=== PATIENT | female | born 1960 | race Caucasian/White ===

== ENCOUNTER 2019-10-29 15:45 | Outpatient (CLI) | payer OTHER, SELFPAY ==
--- NOTE | ~2019-10-29 | XR_ITS ---
EXAMINATION:XR cervical spine 4-5V DATE: 10/29/2019 16:37 INDICATION: Left arm numbness TECHNIQUE: AP, lateral, lateral swimmers and odontoid views of the cervical spine are provided. COMPARISON: None FINDINGS: There is 1 mm of anterolisthesis of C2 on C3and 1 mm anterolisthesis of C3 on C4.There is s traightening of the cervical spine. The odontoid is intact. No fracture is identified. The vertebral body heights are normal. There is mild loss of intervertebral disc space height at C5-6. There is mod erate bilateral uncovertebral joint osteoarthritis at C5-6. Prevertebral soft tissues are normal. IMPRESSION: 1. Mild cervical spondylosis without acute findings. Reviewed, dictated and finalized at location A. IT PRODUCT ANALYST
--- NOTE | ~2019-10-29 | XR_ITS ---
EXAMINATION: XR ribs RT 2V DATE: 10/29/2019 16:37 INDICATION: Right rib pain. Pleurodynia. TECHNIQUE: 3 views of the right ribs were obtained. COMPARISON: Chest 2 views 04/07/2018 FINDINGS: The lungs are hyperexpanded with lucencies, consistent with emphysema. There is mild scarri ng at the lung apices. No pleural effusion or pneumothorax. The heart size is normal. There are multi ple old healed right rib fractures. IMPRESSION: 1. No acute rib fracture. 2. Emphysema. Reviewed, dictated and finalized at location A. ENTARY READING TUTOR
== END 2019-10-29 15:46 | disposition home or self-care (01) ==
PROVIDERS: PCP Family Medicine; Visit Provider Family Medicine
DX: R07.81 Pleurodynia (principal); J43.9 Emphysema, unspecified; M47.892 Other spondylosis, cervical region
CPT/HCPCS: 71100; 72050

== ENCOUNTER 2021-07-13 08:09 | Outpatient (CLI) | payer OTHER, SELFPAY ==
[2021-07-13 09:08] LABS: Cholesterol 207 mg/dL (0-200); HDL Direct 52 mg/dL; Triglycerides 168 mg/dL (<150)
[2021-07-13 09:19] LABS: LDL Cholesterol Direct 115 mg/dL
== END 2021-07-13 08:10 | disposition home or self-care (01) ==
LOC: ANHLAB 08:12
PROVIDERS: PCP Family Medicine; Visit Provider Family Medicine
DX: E78.5 Hyperlipidemia, unspecified (principal)
CPT/HCPCS: 80061

== ENCOUNTER 2022-11-17 08:20 | Outpatient (CLI) | payer OTHER, SELFPAY ==
--- NOTE | ~2022-11-17 | XR_ITS ---
Right Shoulder Technique: AP and scapular Y views were obtained. Clinical History: Degenerative joint disease Findings: No fracture or dislocation is seen. Osseous alignment is anatomic. The glenohumeral and acr omioclavicular joint spaces are preserved. Soft tissues are unremarkable. Impression: Unremarkable right shoulder radiographs. Reviewed, dictated and finalized at location . Impression: Unremarkable right shoulder radiographs.
--- NOTE | ~2022-11-17 | XR_ITS ---
Left Hand Technique: PA, oblique, and lateral views were obtained. Clinical History: General joint disease Findings: No acute fracture or dislocation is seen. Osseous alignment is anatomic. Joint spaces are p reserved. Soft tissues are unremarkable. Impression: Unremarkable left hand. Reviewed, dictated and finalized at location . Impression: Unremarkable left hand.
--- NOTE | ~2022-11-17 | XR_ITS ---
Right Hand Technique: PA, oblique, and lateral views were obtained. Clinical History: Degenerative joint disease Findings: No acute fracture or dislocation is seen. Osseous alignment is anatomic. Joint spaces are p reserved. Soft tissues are unremarkable. Impression: Unremarkable right hand. Reviewed, dictated and finalized at location . Impression: Unremarkable right hand.
== END 2022-11-17 08:21 | disposition home or self-care (01) ==
LOC: ANHIMG 08:23
PROVIDERS: PCP Family Medicine; Visit Provider Family Medicine
DX: M15.9 Polyosteoarthritis, unspecified (principal)
CPT/HCPCS: 73030; 73130

== ENCOUNTER 2022-12-30 14:27 | Outpatient (CLI) | payer OTHER, SELFPAY ==
--- NOTE | ~2022-12-30 | DEXA_ITS ---
Bone Density Report Name: YOLI ZHAO Age: 62 Sex: Female Ethnicity: White Date of : 1960 Indication: postmenopausal; screening for osteoporosis; prior fracture; Referring Provider: NAEL, BRITNI Moise Study: Bone densitometry was performed. Exam Date: December 30, 2022 Accession number: [id number] Bone Density: Region BMD T-score Z-score Classification AP Spine(L1-L4) 0.523 -4.8 -3.2 Osteoporosis Femoral Neck (Left) 0.406 -4.0 -2.6 Osteoporosis Total Hip (Left) 0.524 -3.4 -2.3 Osteoporosis Femoral Neck (Right) 0.436 -3.7 -2.3 Osteoporosis Total Hip (Right) 0.510 -3.5 -2.4 Osteoporosis Total Hip Mean 0.517 -3.5 -2.4 Osteoporosis World Health Organization criteria for BMD impression classify patients as: Normal (T-score at or above -1.0), Osteopenia (T-score between -1.0 and -2.5), or Osteoporosis (T-score at or below -2.5). Clinical Information Provided by Patient: Has had a low trauma fracture Has used the following medications: Vitamin D Patient maximum height was 67 Menopause Age: 52 Does not regularly consume dairy products Onset of menses at age 16 Number of children 3 Impression: The patient has established osteoporosis, based on the Total Spine T-score and the existence of a prior fracture. The patient has risk factors, including: previous fracture. Discussion: HIGH RISK OF FRACTURE. BONE DENSITY IS UNDESIRABLY LOW AT ONE OR MORE SKELETAL SITES, CONSISTENT WITH POSTMENOPAUSAL OSTEOPOROSIS. This patient's lowest T-score, in a patient who has previously fractured, meets the World Health Organization's (WHO) criteria for severe osteoporosis. In untreated patients, the risk of osteoporotic fracture increases approximately two-fold for each 1.0 SD decrease in T-score. Low bone density is not the only risk factor for fracture; also consider factors such as patient's age, frailty or poor health, risk of falling, risk of injury, previous osteoporotic fracture, family history of osteoporosis, cigarette smoking, low body weight, etc. Not everyone with low bone mineral density has osteoporosis; osteomalacia and other metabolic bone disorders should also be considered. Patients who have osteoporosis should be evaluated for specific diseases and conditions (secondary causes) that may cause or contribute to bone loss. The [place] Association of Clinical Endocrinologists (AACE) and National Osteoporosis Foundation (NOF) recommend pharmacologic intervention for all postmenopausal women whose T-score is in this range. The patient should follow a healthful lifestyle (good nutrition with adequate calcium and vitamin D, and appropriate weight-bearing exercise). Follow-Up: Consider a repeat BMD and Vertebral Fracture Assessment (VFA) exam in 2 years or sooner if medically necessary, to reassess this patient's status. Reported by: SANDRA on 12/30/2022 2:49:00 PM. Reviewed, dictated and finaliz
== END 2022-12-30 14:28 | disposition home or self-care (01) ==
PROVIDERS: PCP Family Medicine; Visit Provider Family Medicine
DX: M81.0 Age-related osteoporosis without current pathological fracture (principal)
CPT/HCPCS: 77080

== ENCOUNTER 2023-11-16 07:45 | Outpatient (CLI) | payer OTHER, SELFPAY ==
[2023-11-16 08:29] LABS: Cholesterol 210 mg/dL (0-200); HDL Direct 63 mg/dL; Triglycerides 133 mg/dL (<150)
[2023-11-16 08:33] LABS: Appearance Urine Clear (Clear); Bacteria Urine None Seen /hpf; Bilirubin Urine Negative (Negative); Blood Urine Negative (Negative); Color Urine Yellow (Yellow); Glucose Urine UA Negative (Negative); Ketones Urine Negative (Negative); Leukocyte Esterase Ur Trace LEU/UL (Negative); Nitrate Urine Negative (Negative); Non Pathogenic Casts 0-2; Protein Urine Negative (Negative); RBC Urine 0-2 /hpf (0-2); Specific Grav Ur 1.005 (1.001-1.035); Squamous Epithelial Cell Urine None Seen /hpf (Few); Urobilinogen Urine 0.2 mg/dL (<2.0); WBC Urine 0-5 /hpf (0-3); pH Urine 7.5 (5.0-9.0)
[2023-11-16 08:35] LABS: Add Urine Microscopic? YES
[2023-11-16 08:40] LABS: LDL Cholesterol Direct 124 mg/dL
== END 2023-11-16 07:46 | disposition home or self-care (01) ==
PROVIDERS: PCP Family Medicine; Visit Provider Family Medicine
DX: R82.90 Unspecified abnormal findings in urine (principal); E78.5 Hyperlipidemia, unspecified
CPT/HCPCS: 36415; 80061

== ENCOUNTER 2024-11-15 08:01 | Outpatient (CLI) | payer OTHER, SELFPAY ==
--- OUTSIDE RECORDS SUMMARY | 2024-11-15 08:13 | XMS_ITS | Patient Health Summary ---
Author Organization [facility] Address [address] [place] [address] Care Team Providers Care Engine Head Repairer Name Role Phone FernieMartín Primary Care Provider Tori Valencia MD Unavailable Glenda Benjamin MD Unavailable [phone] Note from [facility],non-owned Affiliates and Associated Physician Practices is amultiple site organization consisting of ambulatory clinics and hospital sitesin [place], [place], [place] and [place]. This disclosure is being madepursuant to the Care Everywhere program and may not contain all information available regarding this patient. Last updated 18.[facility] Allergies * Sulfamethoxazole W-Trimethoprim(Nausea and/or Vomiting) * Ciprofloxacin(Shortness of Breath,Nausea and/or Vomiting) -High Criticality * Codeine(Nausea and/or Vomiting) * Nitrofurantoin(Diarrhea) Medications * Be aware that medications may not be up to date on this document. Alwaysverify current medications with the patient. * estradiol (VAGIFEM) 10 MCG vaginal tablet(Started 11/02/2018) Insert 1 tablet into the vagina every Tuesday & 3 refills remaining * ubrogepant (Ubrelvy) 50 MG tablet(Started 03/04/2023) Take 1 (one) tablet by mouth * Multiple Vitamins-Minerals (Centrum MultiGummies) CHEW qd * Calcium Carb-Cholecalciferol 500-10 MG-MCG TABS * Cholecalciferol 50 MCG (1999 UT) qd * clobetasol (Temovate) 0.05 % ointment(Started 11/29/2023) Apply to affected area 2 times daily 4 refills by 11/28/2024 * estradiol (ESTRACE VAGINAL) 0.1 MG/GM vaginal cream(Started 11/29/2023) Insert 1 g into the vagina at bedtime X 2 week the 2 times weekly 3 refills by 11/28/2024 Social History Tobacco Use Types Packs/Day Years Used Date Smoking Tobacco: Never Smokeless Tobacco: Never Tobacco Cessation:Counseling Given: Not Answered Alcohol Use Standard Drinks/Week Comments No 0 (1 standard drink = 0.6 oz pur e alcohol) PHQ-2 Answer Date Recorded Patient Health Questionnaire-2 Score 0 11/29/2023 Sex and Gender Information Value Date Recorded Sex Assigned at Not on file Gender Identity Not on file Sexual Orientation Not on file Last Filed Vital Signs Vital Sign Reading Time Taken Comments Blood Pressure 110/72 11/29/2023 9:43 AM CDT Pulse - - Temperature - - Respiratory Rate - - Oxygen Saturation - - Inhaled Oxygen Concentration - - Weight 54.4 kg (120 lb) 11/29/2023 9:43 AM CDT Height 170.2 cm (5' 7 ) 11/29/2023 9:43 AM CDT Body Mass Index 18.79 11/29/2023 9:43 AM CDT Procedures * DEXA BONE DENSITY AXIAL SKELETON(Performed 11/10/2018) Performed for Menopausal state * URINALYSIS MICROSCOPIC ONLY REFLEXED(Performed 10/31/2018) Performed for Dysuria * URINALYSIS REFLEX MICROSCOPIC REFLEX CULTURE(Performed 10/31/2018) Performed for Dysuria * CULTURE URINE(Performed 10/31/2018) Performed for Dysuria * US PELVIS W TRANSVAG W DOP NON OB(Performed 10/31/2018) Performed for Pelvic pain in female * PAP IG LB + HPV HR(Performed 10/31/2018) Performed for Well woman exam with routine gynecological exam * PAP IG LB+HPV HR RFLX 16,18(Performed 08/05/2017) Performed for Well woman exam with routine gynecological exam * PAP IGP CERVICAL CANCER AND CT/NG SCREENING(Performed 08/05/2017) Performed for Well woman exam with routine gynecological exam Results * DEXA BONE DENSITY AXIAL SKELETON (11/10/2018 12:15 PM PROJECT CONSTRUCTION ASSISTANT MANAGER) Anatomical Region Laterality Modality Mammography 11/10/2018 1:20 PM PROJECT CONSTRUCTION ASSISTANT MANAGER Narrative 11/10/2018 1:21 PM PROJECT CONSTRUCTION ASSISTANT MANAGER Bone density study (DEXA): History: Osteoporosis screening, calcium supplements, postmenopausal. Current study: 11/10/2018. Location: [facility]. LUMBAR SPINE (L1-L4): Bone mineral density (g/cm2): 0.601. Current T-score: -4.1. Current Z-score: -2.7. Findings: Osteoporosis. LEFT FEMORAL NECK: Bone mineral density (g/cm2): 0.426. Current T-score: -3.8. Current Z-score: -2.6. Findings: Osteoporosis. Please see the PACS images for additional details. World Health Organization definitions of standard deviations relative to the mean T-score: Normal bone density = -1.0 and above Mild osteopenia = -1.0 to -1.5 Moderate osteopenia = -1.5 to -2.0 Severe osteopenia = -2.0 to -2.5 Osteoporosis = -2.5 and below [facility]: [employer] [facility]: [employer] [facility]: [employer] [facility]: [employer] A Reading Radiologist: Karthik Yusuf MD on 11/10/2018 at 1:21 PM Procedure Note Karthik Yusuf MD - 11/10/2018 Bone density study (DEXA): History: Osteoporosis screening, calcium supplements, postmenopausal. Current study: 11/10/2018. Location: [facility]. LUMBAR SPINE (L1-L4): Bone mineral density (g/cm2): 0.601. Current T-score: -4.1. Current Z-score: -2.7. Findings: Osteoporosis. LEFT FEMORAL NECK: Bone mineral density (g/cm2): 0.426. Current T-score: -3.8. Current Z-score: -2.6. Findings: Osteoporosis. Please see the PACS images for additional details. World Health Organization definitions of standard deviations relative to the mean T-score: Normal bone density = -1.0 and above Mild osteopenia = -1.0 to -1.5 Moderate osteopenia = -1.5 to -2.0 Severe osteopenia = -2.0 to -2.5 Osteoporosis = -2.5 and below [facility]: [employer] [facility]: [employer] [facility]: [employer] [facility]: [employer] A Reading Radiologist: Karthik Yusuf MD on 11/10/2018 at 1:21 PM Glenda Benjamin MD DEXA ORDERABLES * URINALYSIS MICROSCOPIC ONLY REFLEXED (10/31/2018 2:43 PM PROJECT CONSTRUCTION ASSISTANT MANAGER) WBC UA 0-5 0 - 5 /hpf [facility] INSURANCE BILL RBC UA 0-2 0 - 2 /hpf [facility] INSURANCE BILL Epithelial Cells (non renal) None seen 0 - 10 /hpf [facility] INSURANCE BILL Epithelial Cells (renal) NOT NEEDED [facility] INSURANCE BILL Comment:Ancillary determined the test is not needed Casts ua NOT NEEDED [facility] INSURANCE BILL Comment:Ancillary determined the test is not needed Casts UA NOT NEEDED [facility] INSURANCE BILL Comment:Ancillary determined the test is not needed Crystals UA NOT NEEDED [facility] INSURANCE BILL Comment:Ancillary determined the test is not needed Crystals UA NOT NEEDED [facility] INSURANCE BILL Comment:Ancillary determined the test is not needed Mucus UA Present Not Estab. [facility] INSURANCE BILL Bacteria UA None seen None seen/Few [facility] INSURANCE BILL Yeast UA NOT NEEDED [facility] INSURANCE BILL Comment:Ancillary determined the test is not needed Trichomonas UA NOT NEEDED [facility] INSURANCE BILL Comment:Ancillary determined the test is not needed Comment Urine NOT NEEDED [facility] INSURANCE BILL Comment:Ancillary determined the test is not needed 10/31/2018 2:43 PM PROJECT CONSTRUCTION ASSISTANT MANAGER 11/01/2018 Narrative Resulting Agency Comment [facility] [address] [id number] Glenda Benjamin MD LAB - URINALYSIS ORD ERABLES Performing Organization Address City/[facility] Co de Phone Number [facility] INSURANCE BILL [address] [place] [address] * (ABNORMAL) URINALYSIS REFLEX MICROSCOPIC REFLEX CULTURE (10/31/2018 2:43 PM PROJECT CONSTRUCTION ASSISTANT MANAGER) Specific Noel UA 1.008 1.005 - 1.030 [facility] INSURANCE BILL pH UA 7.5 5.0 - 7.5 [facility] INSURANCE BILL Color UA Yellow Yellow [facility] INSURANCE BILL Appearance Clear Clear [facility] INSURANCE BILL Leukocyte UA Trace(A) Negative [facility] INSURANCE BILL Protein UA Negative Negative/Tra ce [facility] INSURANCE BILL Glucose UA Negative Negative [facility] INSURANCE BILL Ketone UA Negative Negative [facility] INSURANCE BILL Occult Blood Urine Negative Negative [facility] INSURANCE BILL Bilirubin UA Negative Negative [facility] INSURANCE BILL Urobilinogen 0.2 0.2 - 1.0 mg/dL [facility] INSURANCE BILL Nitrite UA Negative Negative [facility] INSURANCE BILL Microscopic Examination Urine See below: [facility] INSURANCE BILL Comment:Microscopic was leona cated and was performed. Microscopic Examination Urine NOT NEEDED [facility] INSURANCE BILL Comment:Ancillary determined the test is not needed Urinalysis Reflex [facility] INSURANCE BILL Comment:This specimen has re flexed to a Urine Culture. Urine URINE SPECIMEN OBTAINED BY CLEAN CATCH PROCEDURE / Unknown 10/31/2018 2:43 PM PROJECT CONSTRUCTION ASSISTANT MANAGER 11/01/2018 Narrative Resulting Agency Comment [facility] [address] [id number] Glenda Benjamin MD LAB - URINALYSIS ORD ERABLES Performing Organization Address City/[facility]/ZIP Co de Phone Number [facility] INSURANCE BILL [address] [place] [address] * (ABNORMAL) CULTURE URINE (10/31/2018 2:43 PM PROJECT CONSTRUCTION ASSISTANT MANAGER) Urine Culture Routine Final report(A) [facility] INSURANCE BILL Result 1 Escherichia coli(A) [facility] INSURANCE BILL Comment: 25,000-50,000 colony forming units per mL Cefazolin <=4 ug/mL Cefazolin with an SANDRINE <=16 predicts susceptibility to the oral agents cefaclor, cefdinir, cefpodoxime, cefprozil, cefuroxime, cephalexin, and loracarbef when used for therapy of uncomplicated urinary tract infections due to E. coli, Klebsiella pneumoniae, and Proteus mirabilis. Antimicrobial Susceptibility [facility] INSURANCE BILL Comment: S = Susceptible; I = Intermediate; R = Resistant P = Positive; N = Negative MICS are expressed in micrograms per mL Antibiotic RSLT#1 RSLT#2 RSLT#3 RSLT#4 Amoxicillin/Clavulanic Acid S Ampicillin S Cefepime S Ceftriaxone S Cefuroxime S Ciprofloxacin R Ertapenem S Gentamicin S Imipenem S Levofloxacin R Meropenem S Nitrofurantoin S Piperacillin/Tazobactam S Tetracycline S Tobramycin S Trimethoprim/Sulfa S 10/31/2018 2:43 PM PROJECT CONSTRUCTION ASSISTANT MANAGER 11/01/2018 Narrative Resulting Agency Comment [facility] [address] [phone] Glenda Benjamin MD LAB - MICROBIOLOGY O RDERABLES Performing Organization Address City/State/[facility] Co de Phone Number [facility] INSURANCE BILL [address] [place] [address] * US PELVIS W TRANSVAG W DOP NON OB (10/31/2018 2:37 PM PROJECT CONSTRUCTION ASSISTANT MANAGER) Anatomical Region Laterality Modality Pelvis Ultrasound 10/31/2018 2:39 PM PROJECT CONSTRUCTION ASSISTANT MANAGER Impressions 10/31/2018 2:43 PM PROJECT CONSTRUCTION ASSISTANT MANAGER Essentially unremarkable pelvic sonography. Reading Radiologist: Israel Govea MD on 10/31/2018 at 2:43 PM Narrative 10/31/2018 2:43 PM PROJECT CONSTRUCTION ASSISTANT MANAGER EXAM: Pelvic ultrasound HISTORY: Recurrent urinary tract infections. Pain. COMPARISON: None FINDINGS: Transabdominal and endovaginal ultrasound pelvis was performed. Uterus is anteverted normal in size measuring 6.4 x 2.8 x 3.4 cm in size. Endometrial thickness measures 3.4 mm and is within normal limits. No uterine abnormality is seen. There are is a small nabothian cysts within the cervix. The right ovary measures 2.1 x 0.8 x 1.6 cm size. Left ovary measures 1.5 x 1.2 x 1.1 cm in size. No evidence of abnormal adnexal masses seen. Color and grayscale Doppler imaging to both ovaries are within normal limits. No free fluid is identified. Procedure Note Israel Govea MD - 10/31/2018 EXAM: Pelvic ultrasound HISTORY: Recurrent urinary tract infections. Pain. COMPARISON: None FINDINGS: Transabdominal and endovaginal ultrasound pelvis was performed. Uterus is anteverted normal in size measuring 6.4 x 2.8 x 3.4 cm in size. Endometrial thickness measures 3.4 mm and is within normal limits. No uterine abnormality is seen. There are is a small nabothian cysts within the cervix. The right ovary measures 2.1 x 0.8 x 1.6 cm size. Left ovary measures 1.5 x 1.2 x 1.1 cm in size. No evidence of abnormal adnexal masses seen. Color and grayscale Doppler imaging to both ovaries are within normal limits. No free fluid is identified. IMPRESSION Essentially unremarkable pelvic sonography. Reading Radiologist: Israel Govea MD on 10/31/2018 at 2:43 PM Glenda Benjamin MD US ORDERABLES * PAP IG LB + HPV HR (10/31/2018 12:17 PM PROJECT CONSTRUCTION ASSISTANT MANAGER) Diagnosis [facility] INSURANCE BILL Comment: NEGATIVE FOR INTRAEPITHELIAL LESION OR MALIGNANCY. CELLULAR CHANGES ASSOCIATED WITH ATROPHY ARE PRESENT. Specimen Adequacy [facility] INSURANCE BILL Comment: Satisfactory for evaluation. Endocervical and/or squamous metaplastic cells (endocervical component) are present. Clinician Provided ICD10 [facility] INSURANCE BILL Comment: Z01.419 Z12.31 R10.2 R30.0 Performed by [facility] INS[facility] BILL Comment:Sheila Mcdermott chnologist (ASCP) Comment . [facility] INSURANCE BILL Note [facility] INSURANCE BILL Comment: The Pap smear is a screening test designed to aid in the detection of premalignant and malignant conditions of the uterine cervix. It is not a diagnostic procedure and should not be used as the sole means of detecting cervical cancer. Both false-positive and false-negative reports do occur. . IGLBP CPT Code Automation [facility] INSURANCE BILL Comment: This liquid based ThinPrep(R) pap test was screened with the use of an image guided system. Human papillomavirus High Risk Negative Negative [facility] INSURANCE BILL Comment: This high-risk HPV test detects thirteen high-risk types (16/18/31/33/35/39/45/51/52/56/58/59/68) without differentiation. . Pathology/Cytolog y PART OF UTERINE CERVIX / Unknown 10/31/2018 12:17 PM PROJECT CONSTRUCTION ASSISTANT MANAGER 10/31/2018 Narrative [facility] INSURANCE BILL - 11/02/2018 10:15 AM PROJECT CONSTRUCTION ASSISTANT MANAGER Source.............Cervix No. of containers..01 ThinPrep Vial Resulting Agency Comment [facility] [phone] Glenda Benjamin MD LAB - PATHOLOGY/CYTO LOGY ORDERABLES Performing Organization Address City/[facility] Co de Phone Number [facility] INSURANCE BILL [address] [place] [address] * PAP IGP CERVICAL CANCER AND CT/NG SCREENING (08/05/2017 2:53 PM PROJECT CONSTRUCTION ASSISTANT MANAGER) Age Gdln ACOG Testing 30-65 [facility] INSURANCE BILL PART OF UTERINE CERVIX / Unknown 08/05/2017 2:53 PM PROJECT CONSTRUCTION ASSISTANT MANAGER 08/05/2017 Narrative [facility] INSURANCE BILL - 08/10/2017 6:13 AM PROJECT CONSTRUCTION ASSISTANT MANAGER Source.............Cervix No. of containers..01 ThinPrep Vial Resulting Agency Comment [facility] [employer] [id number] Glenda Benjamin MD LAB - PATHOLOGY/CYTO LOGY ORDERABLES Performing Organization Address City/[facility]/ZIP Co de Phone Number [facility] INSURANCE BILL [address] [place] [address] * PAP IG LB+HPV HR RFLX 16,18 (08/05/2017 2:53 PM PROJECT CONSTRUCTION ASSISTANT MANAGER) Diagnosis [facility] INSURANCE BILL Comment:UNSATISFACTORY FOR E VALUATION. Recommendation [facility] INSURANCE BILL Comment:Suggest follow up as clinically appropriate. Specimen Adequacy [facility] INSURANCE BILL Comment: Specimen processed and examined but unsatisfactory for evaluation of epithelial abnormality because of insufficient cellularity. Areas of partially obscuring inflammtory exudate are present. Clinician Provided ICD10 [facility] INSURANCE BILL Comment: Z01.419 Z12.31 N95.1 Performed by [facility] INSURANCE BILL Comment:Perri Baker, Cytot echnologist (ASCP) QC Reviewed by [facility] INSURANCE BILL Comment:Osvaldo Juarez Fabrication Department Supervisor (ASCP) Comment . [facility] INSURANCE BILL Note [facility] INSURANCE BILL Comment: The Pap smear is a screening test designed to aid in the detection of premalignant and malignant conditions of the uterine cervix. It is not a diagnostic procedure and should not be used as the sole means of detecting cervical cancer. Both false-positive and false-negative reports do occur. . [employer]GLBP CPT Code Automation [facility] INSURANCE BILL Comment: This liquid based ThinPrep(R) pap test was screened with the use of an image guided system. Human papillomavirus High Risk Negative Negative [facility] INSURANCE BILL Comment: This high-risk HPV test detects thirteen high-risk types (16/18/31/33/35/39/45/51/52/56/58/59/68) without differentiation. . 08/05/2017 2:53 PM PROJECT CONSTRUCTION ASSISTANT MANAGER 08/05/2017 Narrative [facility] INSURANCE BILL - 08/10/2017 6:13 AM PROJECT CONSTRUCTION ASSISTANT MANAGER Source.............Cervix No. of containers..01 ThinPrep Vial Resulting Agency Comment [facility] [id number] Glenda Benjamin MD LAB - PATHOLOGY/CYTO LOGY ORDERABLES [facility] INSURANCE BILL [address] [place] [address] Care Teams Engine Head Repairer Relationship Specialty Start Date End Date Martín Enciso Update Information PCP - General 11/04/20 Tori Figueroa MD [address] [place] [address] Family Medicine 11/04/20 Glenda Benjamin MD [address] [place] [address] Obstetrics and Gynecology 10/31/18
--- OUTSIDE RECORDS SUMMARY | 2024-11-15 08:13 | XMS_ITS | Referral Summary ---
Author Organization [facility] Medical Office Building B Address [address] [place] [address] Care Team Providers Care Bellhop Name Role Phone German Joy MD Unavailable Tori Figueroa MD Primary Care Provider [phone] Encounters Date Type Department Care Team Description 10/11/2024 [facility] [address] [place] [address] [place] [phone] Leobardo Elizalde MD 10/08/2024 1:00 PM ENERGY TECHNICIAN [facility] [address] [place] [address] [place] [phone] Leobardo Elizalde MD Migraine with aura and without status migrainosus, not intractable (Primary Dx); Meningioma (HCC); Syncope, unspecified syncope type 09/11/2024 10:15 AM ENERGY TECHNICIAN Office Visit [facility] Sports Medicine and Primary Care at [address] [place] [address] Kevin Moser DO Acute pain of right shoulder (Primary Dx); Rotator cuff impingement syndrome of right shoulder 09/04/2024 1:05 PM ENERGY TECHNICIAN Ancillary Procedure [facility] Imaging at [address] [address] Acute pain of right shoulder 09/04/2024 1:30 PM ENERGY TECHNICIAN Office Visit [facility] Sports Medicine and Primary Care at [address] [place] [address] Kevin Moser, Acute pain of right shoulder (Primary Dx); Rotator cuff impingement syndrome of right shoulder from Last 3 Months Allergies Active Allergy Reactions Criticality Noted Date Comments Amitriptyline Other (See comments) High 03/17/2021 Can't urinate Ciprofloxacin Nausea And Vomiting,Shortness of breath High 11/06/2018 Codeine Nausea And Vomiting,Vomiting Low 01/14/2016 Reaction: Vomiting, Fluoxetine Other (See comments) Low 03/17/2021 Ibandronate Chest tightness High 06/05/2015 Meperidine Vomiting Reaction: Vomiting, Morphine Dizziness,Other (See comments) Low 06/28/2017 Nitrofurantoin Diarrhea Low 11/06/2018 I get diarrhea so bad, I get dehydrated Nitrofurantoin Monohyd/M-Cryst Diarrhea Low 03/17/2021 Paroxetine Other (See comments) Low 03/17/2021 Sulfa (Sulfonamide Antibiotics) Other (See comments) Low 09/08/2023 Sulfamethoxazole-Trimetho prim Nausea And Vomiting,Vomiting Low 01/14/2016 Medications cholecalciferol (VITAMIN D-3) 2000 unit capsule qd Active multivit with min-folic acid (Centrum MultiGummies) 150 mcg tablet,chewable qd Acti ve acetaminophen (TYLENOL) 325 mg tablet Take 2 tablets (650 mg total) by mouth every 6 (six) hours as needed for pain Active VITAMIN C, ASCORBATE CALCIUM, ORAL Take 2 tablet/capsule by mouth daily Active ALPRAZolam (NIRAVAM) 0.25 mg disintegrating tablet Take 1 tablet (0.25 mg total) by mouth nightly as needed for anxiety Active UNABLE TO FIND Take 2 each by mouth daily Standard Process Cataplex D Active rimegepant (Nurtec ODT) tablet,disintegrat ing Take 1 tablet every other day. 16 tablet 1 04/13/20 24 Active diazePAM (VALIUM) 5 mg tablet Take 1 tablet 1 hour prior to MRI, may repeat if needed at start of MRI 2 tablet 04/19/20 24 Active Additional Information Patient not taking.Reported on 10/08/2024 Active Problems Problem Noted Date Diagnosed Date Pulmonary emphysema 11/22/2023 Greater trochanteric pain syndrome 03/19/2022 Migraine with aura and witho ut status migrainosus, not intractable 04/02/2021 Assessment & Plan (04/02/2021 5:59 PM CDT): Significant component of anxiety; discussed positive feedback loop between migraines and anxiety; discuss relationship of migraine and neck pain Referral to [facility] for CBT Start duloxetine Start ubrogepant consider CoQ10, B2, Mg Referral to [facility] for cervicalgia Cervicalgia 04/02/2021 Irritable bowel syndrome 04/02/2021 Abnormal radiographic examination 11/01/2019 Overview (11/22/2023): old rib fracture right Vestibular migraine 04/26/2018 Chronic eczematous otitis externa of both ears 0 02/01/2018 Conductive hearing loss, external ear 02/01/2018 Impacted cerumen, bilateral 02/01/2018 Peripheral vertigo, right 02/01/2018 Anxiety disorder 11/01/2017 Closed nondisplaced fracture of shaft of right c lavicle 09/08/2017 Primary osteoarthritis of right knee 06/28/2017 Internal derangement of knee, acute, right 06/28 Acquired stenosis of both external ear canals Meningioma 08/09/2006 Resolved Problems Problem Noted Date Diagnosed Date Resolved Date Classic migraine with aura 08/09/2006 0 04/02/2021 Social History Tobacco Use Types Packs/Day Years Used Date Smoking Tobacco: Never Smokeless Tobacco: Never Tobacco Cessation:Counseling Given: Not Answered Alcohol Use Standard Drinks/Week Comments No 0 (1 standard drink = 0.6 oz pur e alcohol) AUDIT-C Answer Date Recorded Q1: How often do you have a drink containing alcohol? Never 10/08/2024 Q2: How many drinks containi ng alcohol do you have on a typical day when you are drinking? Patient does not drink Q3: How often do you have si x or more drinks on one occasion? Never 10/08/2024 Comments Unknown Sex and Gender Information Value Date Recorded Sex Assigned at Not on file Legal Sex Female 9:05 PM ENERGY TECHNICIAN Gender Identity Not on file Sexual Orientation Not on file Last Filed Vital Signs Vital Sign Reading Time Taken Comments Blood Pressure 110/68 10/08/2024 12:51 PM ENERGY TECHNICIAN Pulse 85 10/08/2024 12:51 PM ENERGY TECHNICIAN Temperature 36.3 C (97.3 F) 05/06/2023 10:10 AM CDT Respiratory Rate 16 10/08/2024 12:51 PM ENERGY TECHNICIAN Oxygen Saturation 97% 10/08/2024 12:51 PM ENERGY TECHNICIAN Inhaled Oxygen Concentration - - Weight 55.3 kg (122 lb) 10/08/2024 12:51 PM ENERGY TECHNICIAN Height 170.2 cm (5' 7 ) 10/08/2024 12:51 PM ENERGY TECHNICIAN Body Mass Index 19.11 10/08/2024 12:51 PM ENERGY TECHNICIAN Plan of Treatment Not on file Medical Devices Implanted Type Area Felt Pad Cutter Device Identifier Shelf Expiration Date Model / Serial / Lot Plate Head Procedures Procedure Name Priority Date/Time Associated Diagnosis Comments MS ARTHROCENTESIS ASPIR&/INJ MAJOR JT/BURSA W/US Routine 09/11/2024 10:15 AM ENERGY TECHNICIAN Acute pain of right shoulder XR SHOULDER RIGHT 2 OR MORE VIEWS Schedule Routine, Read Routine (OP Routine) 09/04/2024 1:18 PM ENERGY TECHNICIAN Acute pain of right shoulder from Last 3 Months Results * MS ARTHROCENTESIS ASPIR&/INJ MAJOR JT/BURSA W/US (09/11/2024 10:15 AM ENERGY TECHNICIAN) Narrative Kevin Moser DO - 09/11/2024 10:15 AM ENERGY TECHNICIAN Kevin Moser DO 09/11/2024 10:31 AM Large Joint Injection w/ Ultrasound Guidance: R glenohumeral Performed by: Kevin Moser DO Authorized by: Kevin Moser DO Large Joint Injection/Aspiration: Consent Given by: Patient Site marked: the procedure site was marked Timeout: prior to procedure the correct patient, procedure, and site was verified Verbal consent obtained: Yes Supporting Documentation: Indications: Pain Procedure Details: Location: Shoulder Site: R glenohumeral Prep: patient was prepped and draped in usual sterile fashion Prep: patient was prepped using a clean technique Needle Size: 22 G Approach: Posterior Ultrasound guided: Yes Fluroscopic guidance: No Ultrasound guidance used for: Real-time guidance Sterile ultrasond techniques: Sterile gel and sterile probe covers were used Ultrasound note: US guided Glenohumeral injection right Patient name: Krista Cha Performing physician: Kevin Moser DO, LORENZA CALERO Reason for procedure: Right GH OA and rotator cuff impingement Patient in the left lateral recumbent position. The right shoulder was facing up and sterilized using Hibiclens. The curvilinear transducer was placed on the posterior aspect of the shoulder in short axis to the joint. The posterior joint space was normal in appearance. The posterior labrum was normal in appearance. The posterior joint capsule was normal in appearance. Once the posterior shoulder capsule was identified, Doppler ultrasound was placed over the area of injection to confirm no vasculature within the pathway of the needle. Once this was confirmed, a 3.5 in, 22 gauge needle was inserted on the lateral aspect of the shoulder implant to the transducer. The needle tip was identified in the subcutaneous tissue, and advanced, in real time, to the posterior shoulder capsule. Once noted within the shoulder capsule, a substrate of 1 cc of 80 mg of DepoMedrol plus 5 cc of 2% lidocaine without epinephrine was injected into the glenohumeral joint. Flow of fluid within the joint capsule was noted for confirmation of placement. Impression: Successful injection of the right glenohumeral joint under ultrasound guidance Medications: 5 mL lidocaine 20 mg/mL (2 %); 80 mg methylPREDNISolone acetate 80 mg/mL Kevin Moser DO IN CLINIC/BEDSIDE [facility] Final Result * XR Shoulder Right 2 or More Views (09/04/2024 1:18 PM ENERGY TECHNICIAN) Anatomical Region Laterality Modality Upper Extremities, Shoulder Right Digi virgil Radiography 09/05/2024 2:23 PM ENERGY TECHNICIAN Narrative 09/05/2024 2:24 PM ENERGY TECHNICIAN EXAM DESCRIPTION: XR SHOULDER RIGHT 2 OR MORE VIEWS REASON FOR STUDY: pain Pt complains of chronic right shoulder pain for years. No injury or prior surgery FINDINGS: Four views submitted with comparison 07/13/2023. No acute fractures are identified. Alignment is normal. The glenohumeral joint is normal. There is mild acromioclavicular joint osteoarthritis. Rotator cuff calcific tendinitis is present. IMPRESSION: Mild right acromioclavicular joint osteoarthritis. Right rotator cuff calcific tendinitis. THIS IS AN ELECTRONICALLY VERIFIED FINAL REPORT 09/05/2024 2:24 PM - Electronically signed by Kevin Cesar M.D. T: Report ID: [id number] Reading Location: [id number] Procedure Note Kevin Cesar MD - 09/05/2024 EXAM DESCRIPTION: XR SHOULDER RIGHT 2 OR MORE VIEWS REASON FOR STUDY: pain Pt complains of chronic right shoulder pain for years. No injury or prior surgery FINDINGS: Four views submitted with comparison 07/13/2023. No acute fractures are identified. Alignment is normal. The glenohumeral joint is normal. There is mild acromioclavicular joint osteoarthritis. Rotator cuff calcific tendinitis is present. IMPRESSION: Mild right acromioclavicular joint osteoarthritis. Right rotator cuff calcific tendinitis. THIS IS AN ELECTRONICALLY VERIFIED FINAL REPORT 09/05/2024 2:24 PM - Electronically signed by Kevin Cesar M.D. T: Report ID: [id number] Reading Location: [id number] Kevin Moser DO IMG XR PROCEDURES Rosa l Result from Last 3 Months Insurance [facility] OPEN ACCESS [employer]IG[employer] OPEN ACCESS CIGNA OPEN ACCESS Care Teams Bellhop Relationship Specialty Start Date End Date Tori Figueroa MD [address] [place] [address] PCP - General Family Medicine 04/24/18 German Joy MD Referring Physician Otolaryngology 04/24/18
--- OUTSIDE RECORDS SUMMARY | 2024-11-15 08:13 | XMS_ITS | Clinical Summary ---
Author Organization [facility] Medical Office Building B Address [address] [place] [address] Care Team Providers Care Wet Process Assistant Head Miller Name Role Phone German Joy MD Unavailable [phone] Tori Figueroa MD Primary Care Provider [phone] Allergies Active Allergy Reactions Criticality Noted Date [...] every other day. 16 tablet 1 04/13/20 Active diazePAM (VALIUM) 5 mg tablet Take 1 tablet 1 hour prior to MRI, may repeat if needed at start of MRI 2 tablet 04/19/20 Active Additional Information Patient not taking.Reported on [...] Classic migraine with aura 08/09/2006 0 04/02/2021 Encounters Date Type Department Care Team Description 10/11/2024 [facility] [address] [facility] [address] [place] [phone] Leobardo Elizalde MD 10/08/2024 1:00 PM GARNETT MACHINE OPERATOR [facility] [address] [address] Leobardo Elizalde MD Migraine with aura and without status migrainosus, not intractable (Primary Dx); Meningioma (HCC); Syncope, unspecified syncope type 09/11/2024 10:15 AM GARNETT MACHINE OPERATOR Office Visit [facility] Medical Group Sports Medicine and Primary Care at [address] [address] Kevin Moser DO Acute pain of right shoulder (Primary Dx); Rotator cuff impingement syndrome of right shoulder 09/04/2024 1:30 PM GARNETT MACHINE OPERATOR Office Visit [facility] Sports Medicine and Primary Care at [address] [address] Kevin Moser DO Acute pain of right shoulder (Primary Dx); Rotator cuff impingement syndrome of right shoulder 09/04/2024 1:05 PM GARNETT MACHINE OPERATOR Ancillary Procedure [facility] Imaging at [address] [address] Acute pain of right shoulder from Last 3 Months Surgical History Surgery Date Site/Laterality Comments BRAIN SURGERY Medical History Medical History Date Comments Osteoporosis Migraines Family History Medical History Relation Name Comments Depression Brother Hypertension Brother Anemia Father Coronary artery disease Father Heart failure Father Hypertension Father Heart attack Maternal Grandmother Heart disease Maternal Grandmother Heart failure Maternal Grandmother Sudden Cardiac Maternal Grandmother Coronary artery disease Mother Heart disease Mother Heart failure Mother Hypertension Mother Stroke Mother enlarged Herat Mother Arthritis Other Heart disease Other Hypertension Other Relation Name Status Comments Brother Father Alive Maternal Grandmother Mother Other Social History Tobacco Use Types Packs/Day Years [...] on file Legal Sex Female 9:05 PM GARNETT MACHINE OPERATOR Gender Identity Not on file Sexual Orientation Not on file Obstetrics History Last Filed Vital Signs Vital Sign Reading Time Taken Comments Blood Pressure 110/68 10/08/2024 12:51 PM GARNETT MACHINE OPERATOR Pulse 85 10/08/2024 12:51 PM GARNETT MACHINE OPERATOR Temperature 36.3 C (97.3 F) 05/06/2023 10:10 AM CDT Respiratory Rate 16 10/08/2024 12:51 PM GARNETT MACHINE OPERATOR Oxygen Saturation 97% 10/08/2024 12:51 PM GARNETT MACHINE OPERATOR Inhaled Oxygen Concentration - - Weight 55.3 kg (122 lb) 10/08/2024 12:51 PM GARNETT MACHINE OPERATOR Height 170.2 cm (5' 7 ) 10/08/2024 12:51 PM GARNETT MACHINE OPERATOR Body Mass Index 19.11 10/08/2024 12:51 PM GARNETT MACHINE OPERATOR Plan of Treatment Health Maintenance Due Date Last Done Comments Breast Cancer Screening-Mammogram 1960 Cervical Cancer Screening 1960 Colon Cancer Screening-Colonoscopy 1960 Depression Screening 1960 Hepatitis C Screening 1960 DTaP/Tdap/Td Vaccine (1 - Tdap) 02/11/1971 Hepatitis B Screening 02/11/1978 Regular Well Visit/Exam 18-64 02/11/1978 Zoster Vaccine (1 of 2) 02/11/2010 Pneumococcal vaccine <65 (2 of 2 - PCV) 06/20/2019 06/20/2018 Covid-19 Vaccine (3 - 2023-2 5 season) 2024 01/21/2021, 12/24/2020 Influenza Vaccine Completed 06/20/2024, , 06/10/2022, Additional history exists Medical Devices Implanted Type Area Supervisor Warping Department Device Identifier Shelf Expiration Date Model / Serial / Lot Plate Head Procedures Procedure Name Priority Date/Time Associated Diagnosis Comments CO ARTHROCENTESIS ASPIR&/INJ MAJOR JT/BURSA W/US Routine 09/11/2024 10:15 AM GARNETT MACHINE OPERATOR Acute pain of right shoulder XR SHOULDER RIGHT 2 OR MORE VIEWS Schedule Routine, Read Routine (OP Routine) 09/04/2024 1:18 PM GARNETT MACHINE OPERATOR Acute pain of right shoulder from Last 3 Months Results * CO ARTHROCENTESIS ASPIR&/INJ MAJOR JT/BURSA W/US (09/11/2024 10:15 AM GARNETT MACHINE OPERATOR) Narrative Kevin Moser DO - 09/11/2024 10:15 AM GARNETT MACHINE OPERATOR Kevin Moser DO 09/11/2024 10:31 AM Large [...] right Patient name: Krista Cha Performing physician: ABDIAS De Jesus DO, CAQSM Reason for procedure: Right GH OA and [...] %); 80 mg methylPREDNISolone acetate 80 mg/mL us Kevin Moser DO IN CLINIC/BEDSIDE [facility]ES Final Result * XR Shoulder Right 2 or More Views (09/04/2024 1:18 PM GARNETT MACHINE OPERATOR) Anatomical Region Laterality Modality Upper Extremities, Shoulder Right Digi virgil Radiography 09/05/2024 2:23 PM GARNETT MACHINE OPERATOR Narrative 09/05/2024 2:24 PM GARNETT MACHINE OPERATOR EXAM DESCRIPTION: XR SHOULDER RIGHT 2 OR [...] by Kevin Cesar M.D. T: Report ID: [id number] Reading Location: [id number] Procedure Note Kevin Cesar MD - 09/05/2024 [...] by Kevin Cesar M.D. T: Report ID: [id number] Reading Location: [place] [address] Kevin Moser DO IMG XR PROCEDURES Rosa l Result from Last 3 Months Insurance [employer] OPEN ACCESS [employer] OPEN ACCESS [employer] OPEN ACCESS Care Teams Wet Process Assistant Head Miller Relationship Specialty Start Date End Date Tori Figueroa MD [address] [address] PCP - General Family Medicine 04/24/18 German Joy MD Referring Physician Otolaryngology 04/24/18
--- OUTSIDE RECORDS SUMMARY | 2024-11-15 08:13 | XMS_ITS | Clinical Summary ---
Author Organization [facility] Address [address] [facility], [address] [address] Phone Care Team Providers Care Staff Home Therapy Rn Name Role Phone Tori Figueroa MD Primary Care Provider [phone] Allergies Active Allergy Reactions Criticality Noted Date Comments Sulfamethoxazole-Trime thoprim Vomiting 01/14/2016 Codeine Vomiting 01/14/2016 Meperidine Vomiting Reaction: Vomiting, Morphine Other (see Comments) Low 06/28/2017 Medications Multiple Vitamins-Minera ls (MULTIVITAMIN PO) Take by mouth. Activ e acetaminophen (TYLENOL) 325 MG Tablet Take 325 mg by mouth every 4 hours as needed. Active Cholecalciferol (VITAMIN D PO) Take by mouth. Active Probiotic Product (SUPER PROBIOTIC DIGESTIVE PO) Take by mouth. A ctive meclizine (ANTIVERT) 25 MG TabletIndicatio ns:Peripheral vertigo, right Take 1 Tablet by mouth 3 times daily as needed for Dizziness or Nausea. 30 Tablet 1 Active Ubrogepant (Ubrelvy) 50 MG Tablet Take 50 mg by mouth daily as needed for Other (migraines). 10 Tablet 5 2 Active Active Problems Problem Noted Date Diagnosed Date Vision disturbance 12/29/2018 Concussion with no loss of consciousness 019 Dizziness 10/20/2018 Anxiety disorder 08/10/2018 Vestibular migraine 04/26/2018 Chronic eczematous otitis externa of both ears 0 02/01/2018 Impacted cerumen, bilateral 02/01/2018 Conductive hearing loss, external ear 02/01/2018 Peripheral vertigo, right 02/01/2018 Acquired stenosis of both external ear canals Hx of mitral valve prolapse Family History Medical History Relation Name Comments Hypertension Mother Relation Name Status Comments Father Alive Mother Alive Social History Tobacco Use Types Packs/Day Years Used Date Smoking Tobacco: Never Smokeless Tobacco: Never Alcohol Use Standard Drinks/Week Comments No 0 (1 standard drink = 0.6 oz pur e alcohol) Sexually Active Control Partners Comments Yes Male Comments No Sex and Gender Information Value Date Recorded Sex Assigned at Not on file Legal Sex Female 11:27 PM CDT Gender Identity Not on file Sexual Orientation Not on file Occupation Industry Job Start Date Job End Date unemployed Not on file Not on file Not on file Last Filed Vital Signs Vital Sign Reading Time Taken Comments Blood Pressure 112/68 09/30/2021 11:18 AM MANUAL WRITER Pulse 88 09/30/2021 11:18 AM MANUAL WRITER Temperature 36.1 C (96.9 F) 09/30/2021 11:18 AM MANUAL WRITER Respiratory Rate 16 09/30/2021 11:18 AM MANUAL WRITER Oxygen Saturation 98% 09/30/2021 11:18 AM MANUAL WRITER Inhaled Oxygen Concentration - - Weight 57.7 kg (127 lb 3.2 oz) 09/30/2021 11:18 AM MANUAL WRITER Height 170.2 cm (5' 7 ) 09/30/2021 11:18 AM MANUAL WRITER Body Mass Index 19.92 09/30/2021 11:18 AM MANUAL WRITER Plan of Treatment Health Maintenance Due Date Last Done Comments Hepatitis C Virus (HCV) Screening 1960 TdaP Immunization 1960 Pap Smear 02/11/1981 Cervical Cancer Screening (CCS) 02/11/1990 HPV/Cotest 02/11/1990 Colonoscopy 02/11/2005 Colorectal Cancer Screening 02/11/2005 Cologuard 02/11/2010 Immunochemical Fecal Occult Blood 02/11/2010 Mammogram 02/11/2010 Zoster Immunization (1 of 2) 02/11/2010 Pneumococcal Immunization (50+ years) (2 of 2 - PCV) 06/20/2019 06/20/2018 Influenza Immunization (#1) 2024 10/0 02/2021, 06/18/2020, 07/30/2019, Additional history exists SARS-COV-2 Immunization (2023- season) 2024 01/21/2021, 12/24/2020 Respiratory Syncytial Virus (RSV) Immunization (Adult) (1 - 1-dose 75+ series) 02/11/2035 Pneumococcal Immunization Combined Discontinued 06/20/2018 Hepatitis B Immunization Aged Out No longer eligible based on patient's age to complete this topic Meningococcal Immunization (ACWY) Aged Out No longer eligible based on patient's age to complete this topic Rotavirus Immunization Aged Out No lo nger eligible based on patient's age to complete this topic Insurance [facility] Care Teams Staff Home Therapy Rn Relationship Specialty Start Date End Date Tori Figueroa MD [address] [address] PCP - General Family Medicine 02/19/19
--- OUTSIDE RECORDS SUMMARY | 2024-11-15 08:14 | XMS_ITS | Clinical Summary ---
Author Organization [facility] Address [address] [place] [address] Phone Care Team Providers Care Juvenile Court Judge Name Role Phone Unavailable Primary Care Provider Unavailabl e Allergies Active Allergy Reactions Criticality Noted Date Comments Codeine Nausea and Vomiting Low 02/16/2018 Meperidine Nausea and Vomiting Low 02/16/2018 Sulfamethoxazole-Trimethoprim Dizziness Low 2017 Medications No known medications Social History Tobacco Use Types Packs/Day Years Used Date Smoking Tobacco: Never Smokeless Tobacco: Never Alcohol Use Standard Drinks/Week Comments No 0 (1 standard drink = 0.6 oz pur e alcohol) Comments Unknown Sex and Gender Information Value Date Recorded Sex Assigned at Not on file Legal Sex Female 10:50 AM CDT Gender Identity Not on file Sexual Orientation Not on file Last Filed Vital Signs Vital Sign Reading Time Taken Comments Blood Pressure 112/66 02/16/2018 2:30 PM CDT Pulse 92 02/16/2018 2:30 PM CDT Temperature 37 C (98.6 F) 02/16/2018 10:52 AM CDT Respiratory Rate 14 02/16/2018 2:30 PM CDT Oxygen Saturation 98% 02/16/2018 2:30 PM CDT Inhaled Oxygen Concentration - - Weight 55.8 kg (123 lb) 02/16/2018 10:52 AM CDT Height 170.2 cm (5' 7 ) 02/16/2018 10:52 AM CDT Body Mass Index 19.26 02/16/2018 10:52 AM CDT Plan of Treatment Health Maintenance Due Date Last Done Comments DTAP/TDAP/TD VACCINES (1 - Tdap) 02/11/1979 CERVICAL CANCER SCREENING 02/11/1990 BREAST CANCER SCREENING 2000 COLORECTAL SCREENING 02/11/2005 Colorectal Cancer Screening 02/11/2005 FIT-DNA Q 3 years 02/11/2005 FIT/FOBT Q 1 year 02/11/2005 Flex Sig/CT Colonography Q 5 years 02/11/2005 ZOSTER VACCINE (1 of 2) 02/11/2010 INFLUENZA VACCINE (#1) 2024 RSV VACCINE (60+ or ) (1 - 1-dose 75+ series) 02/11/2035 PNEUMOCOCCAL VACCINE 0-49 YEARS Aged Out No longer eligible based on patient's age to complete this topic Insurance [employer] OPEN ACCESS HMO
--- OUTSIDE RECORDS SUMMARY | 2024-11-15 08:14 | XMS_ITS | Clinical Summary ---
Author Organization [facility] Address [address] [place] [address] Care Team Providers Care Digital Analytics Manager Name Role Phone FernieMartín Primary Care Provider UnavailTori Roldan MD Unavailable Glenda Benjamin MD Unavailable [phone] Source Comments [facility],non-owned Affiliates and Associated Physician Practices is amultiple site organization consisting of ambulatory clinics and hospital sitesin [place], [place], [place] and [place]. This disclosure is being madepursuant to the Care Everywhere program and may not contain all information available regarding this patient. Last updated 18.[facility] Allergies Active Allergy Reactions Criticality Noted Date Comments Sulfamethoxazole W-Trimethoprim Nausea and/or Vomiting 08/05/2017 Ciprofloxacin Shortness of Breath,Nausea and/or Vomiting High 11/06/2018 Codeine Nausea and/or Vomiting 08/05/2017 Nitrofurantoin Diarrhea 11/06/2018 I get diarrhea so bad, I get dehydrated Medications * Be aware that medications may not be up to date on this document. Alwaysverify current medications with the patient. Medication Sig Dispensed Refills Start Date End Date Status estradiol (VAGIFEM) 10 MCG vaginal tablet Insert 1 tablet into the vagina every Tuesday & 90 tablet 3 11/02/2018 Active Additional Information Patient not taking.Reported on 11/29/2023 ubrogepant (Ubrelvy) 50 MG tablet Take 1 (one) tablet by mouth 03/04/2023 Active Multiple Vitamins-Minerals (Centrum MultiGummies) CHEW qd Active Calcium Carb-Cholecalcifero l 500-10 MG-MCG TABS Active Cholecalciferol 50 MCG (2000 UT) qd Active clobetasol (Temovate) 0.05 % ointment Apply to affected area 2 times daily 60 g 4 11/29/2023 Active estradiol (ESTRACE VAGINAL) 0.1 MG/GM vaginal cream Insert 1 g into the vagina at bedtime X 2 week the 2 times weekly 42.5 g 3 11/29/2023 Active Social History Tobacco Use Types Packs/Day Years [...] Mass Index 18.79 11/29/2023 9:43 AM CDT Plan of Treatment Health Maintenance Due Date Last Done Comments COLON MONITORING 1960 COLONOSCOPY - COLON CA SCREENING 1960 CT COLONOGRAPHY - COLON CA SCREENING 1960 FIT - COLON CA SCREENING 1960 FLEX SIG - COLON CA SCREENING 1960 LIPID TESTING 1960 MAMMOGRAM 1960 HIV SCREENING 02/11/1975 HEPATITIS C SCREENING 02/07/1978 DTAP/TDAP/TD VACCINES (1 - Tdap) 02/11/1979 PNEUMOCOCCAL VACCINE 50+ (1 of 1 - PCV) 02/11/2010 ZOSTER VACCINE (1 of 2) 02/11/2010 PAP SMEAR 10/31/2019 10/31/2018, 12/0 09/2016, 08/05/2017 COVID-19 VACCINE ( - season) 2024 01/21/2021, 12/24/2020 INFLUENZA VACCINE (#1) 2024 3, 06/10/2022, 06/05/2022, Additional history exists DEPRESSION SCREENING 09/05/2024 11/29/2023 COLOGUARD (AGES 45-75) - COLON CA SCREENING 02/04/2025 02/04/2022 Colorectal Cancer Screening 02/04/2025 Respiratory Syncytial Virus (RSV) Vaccine Pt: or over 60 yrs (1 - 1-dose 75+ series) 02/11/2035 HEPATITIS B VACCINE Aged Out No longe r eligible based on patient's age to complete this topic HIB VACCINE Aged Out No longer eligi ble based on patient's age to complete this topic HPV VACCINE Aged Out No longer eligi ble based on patient's age to complete this topic MENINGOCOCCAL (Group B) VACCINE SHARED DECISION-MAKING Aged Out No longer eligible based on patient's age to complete this topic MENINGOCOCCAL GROUPS A/C/Y/W VACCINE Aged Out No longer eligible based on patient's age to complete this topic PNEUMOCOCCAL VACCINE Aged Out No long er eligible based on patient's age to complete this topic Procedures Procedure Name Priority Date/Time Associated Diagnosis Comments PAP IG LB + HPV HR Routine 10/31/2018 12 :17 PM ATTENDANT SALES Well woman exam with routine gynecological exam from Last 3 Months or Most Recently Relevant to Health Maintenance Results * PAP IG LB + HPV HR (10/31/2018 12:17 PM ATTENDANT SALES) Diagnosis [facility] INSURANCE BILL Comment: NEGATIVE FOR INTRAEPITHELIAL LESION OR MALIGNANCY. CELLULAR CHANGES ASSOCIATED WITH ATROPHY ARE PRESENT. Specimen Adequacy [facility] INSURANCE BILL Comment: Satisfactory for evaluation. Endocervical and/or squamous metaplastic cells (endocervical component) are present. Clinician Provided ICD10 [facility] INSURANCE BILL Comment: Z01.419 Z12.31 R10.2 R30.0 Performed by [facility] INSURANCE BILL Comment:Sheila Mcdermott chnologist (ASCP) Comment [...] UTERINE CERVIX / Unknown 10/31/2018 12:17 PM ATTENDANT SALES 10/31/2018 Narrative [facility] INSURANCE BILL - 11/02/2018 10:15 AM ATTENDANT SALES Source.............Cervix No. of containers..01 ThinPrep Vial Resulting Agency Comment [facility] [address] [place] [phone] Glenda Benjamin MD LAB - PATHOLOGY/CYTO LOGY ORDERABLES [facility] INSURANCE BILL [address] [place] [address] from Last 3 Months or Most Recently Relevant to Health Maintenance Care Teams Digital Analytics Manager Relationship Specialty Start Date End Date Martín Enciso Update Information PCP - General 11/04/20 Tori Figueroa MD [address] [place], [place] [id number] Family Medicine 11/04/20 Glenda Benjamin MD [address] [address] Obstetrics and Gynecology 10/31/18
--- OUTSIDE RECORDS SUMMARY | 2024-11-15 08:14 | XMS_ITS | Referral Summary ---
Author Organization [facility] Address [address] [place] [address] Care Team Providers Care Commissioner Conservation Of Resources Name Role Phone FernieMartín Primary Care Provider UnavailTori Roldan MD Unavailable Glenda Benjamin MD Unavailable [phone] Source Comments [facility],non-owned Affiliates and Associated Physician Practices is amultiple site organization consisting of ambulatory clinics and hospital sitesin [place], [place], [place] and [place]. This disclosure is being madepursuant to the Care Everywhere program and may not contain all information available regarding this patient. Last updated 18.[facility] Allergies Active Allergy Reactions Criticality Noted Date [...] 11/29/2023 9:43 AM CDT Plan of Treatment Not on file Procedures Procedure Name Priority Date/Time Associated Diagnosis Comments PAP IG LB + HPV HR Routine 10/31/2018 12 :17 PM SAIL REPAIR PERSON Well woman exam with routine gynecological exam from Last 3 Months or Most Recently Relevant to Health Maintenance Results * PAP IG LB + HPV HR (10/31/2018 12:17 PM SAIL REPAIR PERSON) Diagnosis [facility] INSURANCE BILL Comment: NEGATIVE FOR [...] UTERINE CERVIX / Unknown 10/31/2018 12:17 PM SAIL REPAIR PERSON 10/31/2018 Narrative [facility] INSURANCE BILL - 11/02/2018 10:15 AM SAIL REPAIR PERSON Source.............Cervix No. of containers..01 ThinPrep Vial Resulting Agency Comment [address] [phone] Glenda Benjamin MD LAB - PATHOLOGY/CYTO LOGY ORDERABLES [facility] INSURANCE BILL [address] [place] [address] from Last 3 Months or Most Recently Relevant to Health Maintenance Care Teams Commissioner Conservation Of Resources Relationship Specialty Start Date End Date Martín Enciso Update Information PCP - General 11/04/20 Tori Figueroa MD [address] [place] [address] Family Medicine 11/04/20 Glenda Benjamin MD [address] [place] [address] Obstetrics and Gynecology 10/31/18
[2024-11-15 08:45] LABS: Hematocrit 39.1 % (37.0-47.0); Hemoglobin 12.5 g/dL (12.0-15.0); Mean Corpuscular Hemoglobin 31.5 pg (26-34); Mean Corpuscular Volume 98.5 fl (80-100); Mean Platelet Volume 9.7 fl (7.4-10.4); Platelet Count Result 221 k/mm3 (150-375); Red Blood Count 3.97 M/mm3 (4.2-5.4); Red Cell Distribution Width 13.3 % (11.5-14.5); White Blood Count 5.2 K/mm3 (4.5-10.0)
[2024-11-15 09:01] LABS: Alanine Aminotransferase 25 U/L (6-35); Albumin Level 4.5 g/dL (3.5-5.1); Alkaline Phosphatase 83 U/L (38-126); Anion Gap 6 mmol/L (4-12); Aspartate Amino Transferase 31 U/L (14-36); Bilirubin,Total 0.6 mg/dL (0.2-1.3); Blood Urea Nitrogen 17 mg/dL (7-17); Calcium 9.4 mg/dL (8.4-10.2); Carbon Dioxide 28 mmol/L (22-30); Chloride 106 mmol/L (98-107); Cholesterol 197 mg/dL (0-200); Estimated Glomerular Filt Rate > 60; Glucose 90 mg/dL (65-110); HDL Direct 60 mg/dL; Potassium 4.3 mmol/L (3.4-5.0); Sodium 140 mmol/L (137-145); Triglycerides 92 mg/dL (<150)
[2024-11-15 09:12] LABS: LDL Cholesterol Direct 98 mg/dL
== END 2024-11-15 08:02 | disposition home or self-care (01) ==
LOC: ANHLAB 08:04
PROVIDERS: PCP Family Medicine; Visit Provider Family Medicine
DX: E78.5 Hyperlipidemia, unspecified (principal); Z79.899 Other long term (current) drug therapy
CPT/HCPCS: 36415; 80053; 80061; 85027